=== PATIENT | female | born 1950 | race Caucasian/White ===

== ENCOUNTER 2017-04-04 22:00 | Emergency (ER) | payer BC ==
[~2017-04-04] VITALS: Ht 170.2 cm; Wt 81.6 kg
[2017-04-04 22:25] VITALS: BP 173/83
--- NOTE | 2017-04-04 22:57 | PHYS DOC ---
Past Medical History Past Medical History: Diabetes-Type I, Hypertension Past Surgical History: Tubal ligation, Other Additional Past Surgical Histo: R hip, L rotator cuff Alcohol Use: None Drug Use: None Adult General Chief Complaint Chief Complaint: LOWER BACK PAIN OR INJURY [facility] HPI Patient is a 66 year old female presents to the emergency department with a history of left lower back pain and discomfort. Patient states that she was seen by her primary care physician and was told she probably had sciatic pain and discomfort. She was provided with Flexeril and some steroids in which patient did fill today. Patient states she did take the Flexeril her she has not taken any of the steroids today. She has not taken any Tylenol or ibuprofen for pain and discomfort. Patient presents here to the emergency department stating that she is in extreme pain. Patient is able to ambulate however she does limp with the left leg. Denies any numbness or tingling down to the lower extremity. Review of Systems Review of Systems Constitutional: Denies fever or chills [] Eyes: Denies change in visual acuity, redness, or eye pain [] HENT: Denies nasal congestion or sore throat [] Respiratory: Denies cough or shortness of breath [] Cardiovascular: No additional information not addressed in HPI [] GI: Denies abdominal pain, nausea, vomiting, bloody stools or diarrhea [] : Denies dysuria or hematuria [] Musculoskeletal: Left lower back pain denies joint pain [] Integument: Denies rash or skin lesions [] Neurologic: Denies headache, focal weakness or sensory changes [] Endocrine: Denies polyuria or polydipsia [] Current Medications Current Medications Current Medications Medications (Trade) Dose Ordered Sig/Darrion Start Time Stop Time Status Last Admin Dose Admin Ketorolac Tromethamine (Toradol Im) 60 mg 1X ONCE 04/04/17 23:15 04/04/17 23:16 DC 04/04/17 23:16 60 MG Methylprednisolone Sodium Succinate (SOLU-Medrol 125MG VIAL) 125 mg 1X ONCE 04/04/17 23:15 04/04/17 23:16 DC 04/04/17 23:16 125 MG Allergies Allergies Allergies Coded Allergies Type Severity Reaction Last Updated Verified No Known Drug Allergies 04/04/17 No Physical Exam Physical Exam Constitutional: Well developed, well nourished, no acute distress, non-toxic appearance. [] HENT: Normocephalic, atraumatic, bilateral external ears normal, oropharynx moist, no oral exudates, nose normal. [] Eyes: PERRLA, EOMI, conjunctiva normal, no discharge. [] Neck: Normal range of motion, no tenderness, supple, no stridor. [] Cardiovascular:Heart rate regular rhythm, no murmur [] Lungs & Thorax: Bilateral breath sounds clear to auscultation [] Skin: Warm, dry, no erythema, no rash. [] Back: Tenderness noted on the left lower sciatic area. Extremities: No tenderness, no cyanosis, no clubbing, ROM intact, no edema. Peripheral pulses 2+ cap refill brisk less than 2 seconds. Neurologic: Alert and oriented X 3, normal motor function, normal sensory function, no focal deficits noted. [] Psychologic: Affect normal, judgement normal, mood normal. [] Current Patient Data Vital Signs Vital Signs Date Time Temp Pulse Resp B/P (MAP) Pulse Ox O2 Delivery O2 Flow Rate FiO2 04/04/17 22:25 98.1 120 21 98 Room Air 98.1 EKG EKG [] Radiology/Procedures Radiology/Procedures [] Course & Med Decision Making Course & Med Decision Making Pertinent Labs and Imaging studies reviewed. (See chart for details) Patient will be provided with Solu-Medrol IM and Toradol IM. Patient will be discharged home in stable condition with recommendations to continue with her medications as prescribed by her primary care physician. Patient was also recommended to use ice packs to the area on 20 minutes off 20 minutes several times a day. Also recommended proper body mechanics as well as when she is lying to place a pillow underneath her knees where she is lying on her side place a pillow between her legs to help with proper body position. Patient will be discharged home in stable condition signs and symptoms to return back to the emergency department as been provided. Patient was recommended to follow-up with her primary care physician tomorrow if the pain is not feeling any better. [] Dragon Disclaimer Dragon Disclaimer This electronic medical record was generated, in whole or in part, using a voice recognition dictation system. Departure Departure Impression: Primary Impression: Sciatica of left side Disposition: HOME, SELF-CARE Condition: STABLE Referrals: NO PCP (PCP) Patient Instructions: Back Exercises, [id number], Sciatica, [id number] Additional Instructions: Activity as tolerated. Medications as prescribed by your primary care physician. You may use Tylenol or ibuprofen help with the pain and discomfort. Ice packs on 20 minutes off 20 minutes several times a day. Proper body mechanics is important if you're lying on your back make sure you have a pillow underneath her knees to help relieve some of the pressure and discomfort. If you're lying on your sites make sure you have a pillow between your knees in your legs to help promote proper alignment for your body. Follow-up through primary care physician tomorrow if the pain is not being relieved. Return back to emergency department sign symptoms of become worse. DEAN HERNANDEZ [employer] C[employer]IFICATE CLERK Apr 04, 2017 22:57
[2017-04-04] MEDS ORDERED: methylPREDNISolone SOD SUCC PF 125 MG/2 ML VIAL. IM ONE (23:15)
[2017-04-04] MEDS ORDERED: KETOROLAC TROMETHAMINE 60 MG/2 ML INJ. IM ONE (23:15)
== END 2017-04-04 23:37 | disposition home or self-care (01) ==
LOC: ER 22:00
DX: M54.32 Sciatica, left side (principal); E10.9 Type 1 diabetes mellitus without complications; I10 Essential (primary) hypertension; Z98.890 Other specified postprocedural states; Z98.51 Tubal ligation status
CPT/HCPCS: 96372; 99284; J1885; J2930